=== PATIENT | female | born 1990 | race Caucasian/White ===

== ENCOUNTER 2017-07-26 11:08 | Emergency (ER) | payer BC ==
[~2017-07-26] VITALS: Ht 162.6 cm; Wt 110.7 kg
[2017-07-26 11:21] VITALS: BP 120/75; Ht 162.6 cm; Wt 110.7 kg
== END 2017-07-26 14:04 | disposition home or self-care (01) ==
LOC: ED 11:08
DX: J11.1 Influenza due to unidentified influenza virus with other respiratory manifestations (principal)